=== PATIENT | female | born 1985 | race Caucasian/White ===

== ENCOUNTER 2016-08-11 04:16 | Emergency (ER) | payer OTHER ==
[~2016-08-11] VITALS: Ht 165.1 cm; Wt 63.6 kg
[~2016-08-11 04:16] MED LIST: BACL10TA PO; DICY20TA33 PO; PROZ20 PO; TRAM50TA2 PO; TRAZ150T72 PO; [UNRECOGNIZED DRUG - CODE] IJ
[2016-08-11 04:18] VITALS: BP 105/68; PULSE 96; RESP 16; O2SAT 99
--- NOTE | 2016-08-11 06:21 | ED.REPORT ---
HPI-Extremity Problem Lower Date of Service August 11, 2016 ED Provider: Martin Dial MD The patient is a 31 year old female who presents to the ED after stubbing her right pinky toe on the kitchen table [employer]. The pinky is blue, purple, and swollen. Nursing Notes Stated Complaint: RT PINKY TOE PAIN Chief Complaint: Extremity Trauma Nursing Notes Reviewed: Yes Allergies: Coded Allergies: No Known Allergies (Verified , 06/22/12) Scheduled Baclofen (Baclofen) 10 Mg Tablet 10 MG PO BID Fluoxetine (Prozac) 20 Mg Cap 30 MG PO DAILY Trazodone (Trazodone) 150 Mg Tablet 200 MG PO HS Scheduled PRN Dicyclomine (Bentyl) 20 Mg Tablet 20 MG PO QID PRN PRN For Pain Tramadol (Tramadol) 50 Mg Tablet 100 MG PO Q6H PRN PRN For Pain Miscellaneous Medications Methocarbamol (Methocarbamol) 100 Mg/1 Ml Vial 100 MG IJ General Time Seen by MD: 06:11 Chief Complaint Toe injury right 5 Hx Obtained From: Patient Arrived By: Walk-in Onset Occurred: Just prior to arrival Symptom Duration: Since onset Caused by: Accidental Location: : Toe right 5 Quality: Painful Severity: Current: Mild Exacerbated by: Movement Recent Healthcare: No recent doctor visit, No recent hospitalization Similar Sx Previous: No Past Medical History Past Medical History Restless legs TMJ Arthralgia Depression alcohol abuse, in remission Past Surgical History pins in right foot Smoking History Current Every Day Smoker Social History Alcohol Use: In recovery Other Social History: Local resident Ambulatory Status Independent Review of Systems Musculoskeletal: Reports: Joint pain (right little toe), Joint swelling (right little toe) Skin: Reports Bruising, Reports Swelling Neurologic: Denies: Change LOC, Dizziness, Lightheaded, Problem walking Complete sys rev & neg: except as marked. Physical Exam Initial Vital Signs Vital Signs (First) Date Time Temp Pulse Resp B/P Pulse Ox O2 Delivery O2 Flow Rate FiO2 08/11/16 04:18 36.4 96 16 105/68 99 Room Air Initial VS: Reviewed General/Constitutional: Well-developed, Well-nourished Head / Eyes: Atraumatic, Normocephalic, PERRL ENT: Mucous membranes moist, Conjunctiva normal Neck: Supple, Non-tender Respiratory: Breath sounds normal, Clear to auscultation, No respiratory distress Cardiovascular: Regular rate & rhythm, Heart sounds normal, Intact distal pulses Abdomen / GI: Soft, Non-tender, No guarding, No rebound, No distention Back: No CVA tenderness Upper Extremities: Vascular intact, Neuro intact, No swelling, No tenderness Skin: Warm, Dry Lower Extremity / Pelvis / MS: Inspection NL, Full range of motion, No erythema , Neurologic intact Toe Exam : Toe Exam: Positive: Swelling present... (Mild), Tenderness present... (Mild) , Toe name... (R fifth) Interpretation & Diagnostics X-Ray Interpretation Xray Interpretation: RIGHT FOOT X-RAY IMPRESSION: no acute findings X-Ray Ordered: Foot right Interpretation / Wet Read by: Wet read ED physician Re-Eval/Medical Decision Med Decision/Clinical Course 31-year-old female with right pinky toe injury. She had previous injury with surgery. X-ray no fracture. Likely sprain versus contusion. Weightbearing as tolerated. Return precautions given. Primary doctor next week as needed. Counseled Regarding: Diagnosis, Lab results, Need for follow-up, When/why to return to ED Discharge & Departure Impression: Primary Impression: Sprain of toe, fifth, right Encounter type: initial encounter Qualified Code: S93.504A - Unspecified sprain of right lesser toe(s), initial encounter Disposition: Home Discharge Condition All VS Reviewed: Yes Condition: Stable Additional Instructions: The x-ray does not show any fracture. All the pins from your previous surgery are in place. Keep your toe trav taped and take Ibuprofen and Tylenol as needed for pain. Follow up with your primary care physician if your symptoms are not improving. Otherwise, the toe should heal on its own. Return to the Emergency Department for any new or worsening symptoms including increased swelling, redness, or pain. I hope you feel better soon! [facility] Scribe Attestation Portion of this note were transcribed by Cassandra Hill. I, Dr. Dial, personally performed the history, physical exam, and medical decision-making: I reviewed and confirmed the accuracy for the information in the transcribed note. Signed by: bebe Simmons, 08/11/16 0900 copies to: [facility] Ben M MD August 11, 2016 06:20 Cassandra Hill August 11, 2016 06:47
[2016-08-11] MEDS ORDERED: HYDROcodone-APAP 5-325 mg Tablet PO ONE (06:50)
--- NOTE | 2016-08-11 09:37 | DRSVH ---
PROCEDURE: X-RAY TOESS, TWO VIEWS INDICATIONS: injury TECHNIQUE: 3 views of the fifth toe(s) acquired. COMPARISON: None. FINDINGS: Bones: Post surgical changes along the distal aspect of the fifth metatarsal. Hardware is intact. The visualized superimposed fracture. Soft tissues: No suspicious soft tissue densities. IMPRESSION: No visualized acute fracture or dislocation. However, if clinical concern and/or pain pe rsist, short interval imaging followup in 7-10 days is recommended, as occult injury cannot be defini tively excluded. Dictated by: Sonal Munroe M.D. on 08/11/2016 at 9:34 Approved by: Sonal Munroe M.D. on 08/11/2016 at 9:35
== END 2016-08-11 07:00 | disposition home or self-care (01) ==
LOC: SED 04:16
DX: S93.504A Unspecified sprain of right lesser toe(s), initial encounter (principal); W22.03XA Walked into furniture, initial encounter; Y93.89 Activity, other specified; Y92.89 Other specified places as the place of occurrence of the external cause; Y99.0 Civilian activity done for income or pay; F32.9 Major depressive disorder, single episode, unspecified; F17.200 Nicotine dependence, unspecified, uncomplicated